=== PATIENT | female | born 1955 | race Caucasian/White ===

== ENCOUNTER 2019-01-10 06:13 | Day surgery (SDC) | payer OTHER ==
[~2019-01-10 06:13] MED LIST: Lactated Ringers 1,000 ML IV SCH; Lidocaine 1%/Sod Bicarbonate in NS 8.4% 1 ML Syringe IDERM PRN; Sodium Chloride 0.9% 10 ML Syringe FLUSH PRN
--- NOTE | 2019-01-10 06:47 | PCM.PREANE ---
Preanesthetic Assessment - Anesthesia/Transfusion/Family Hx Anesthesia History: Prior Anesthesia Without Reaction Family History of Anesthesia Reaction: No Transfusion History: No Prior Transfusion(s) - Review of Systems General: No Symptoms Pulmonary: No Symptoms Cardiovascular: No Symptoms Gastrointestinal: No Symptoms Neurological: No Symptoms Other: Reports: None - Physical Assessment NPO Status Date: 01/09/19 NPO Status Time: 00:00 Pulse: 85 O2 Sat by Pulse Oximetry: 98 Respiratory Rate: 16 Blood Pressure: 128/79 Temperature: 36.2 C Height: 1.7 m Weight: 69.354 kg ASA Class: 2 Mental Status: Alert & Oriented x3 Airway Class: Mallampati = 1 Dentition: Reports: Caries (fillings) Thyro-Mental Finger Breadths: 3 Mouth Opening Finger Breadths: 3 ROM/Head Extension: Full Lungs: Clear to Auscultation, Normal Respiratory Effort Cardiovascular: Regular Rate, Regular Rhythm - Allergies Allergies/Adverse Reactions: Allergies Allergy/AdvReac Type Severity Reaction Status Date / Time Sulfa (Sulfonamide Allergy Headache Verified 01/09/19 14:43 Antibiotics) - Blood Blood Available: No Product(s) Available: None - Anesthesia Plan Pre-Op Medication Ordered: None - Acknowledgements Anesthesia Type Planned: General Anesthesia Pt an Appropriate Candidate for the Planned Anesthesia: Yes Alternatives and Risks of Anesthesia Discussed w Pt/Guardian: Yes Pt/Guardian Understands and Agrees with Anesthesia Plan: Yes PreAnesthesia Questionnaire HEENT History: Reports: Impaired Vision Cardiovascular History: Reports: High Cholesterol, Hypertension Respiratory History: Reports: None Gastrointestinal History: Reports: None Genitourinary History: Reports: Other (See Below) Other Genitourinary History: Stress urinary incontinence MANAGER SPA History: Reports: Musculoskeletal History: Reports: None Neurological History: Reports: Migraines Psychiatric History: Reports: Depression Endocrine/Metabolic History: Reports: None Hematologic History: Reports: None Immunologic History: Reports: None Oncologic (Cancer) History: Reports: Other (See Below) Other Oncologic History: Skin Dermatologic History: Reports: None - Past Surgical History Head Surgeries/Procedures: Reports: None HEENT Surgical History: Reports: None Cardiovascular Surgical History: Reports: None Respiratory Surgical History: Reports: None GI Surgical History: Reports: Appendectomy Female Surgical History: Reports: Hysterectomy, Other (See Below) Other Female Surgeries/Procedures: Bladder repair Endocrine Surgical History: Reports: None Neurological Surgical History: Reports: None Musculoskeletal Surgical History: Reports: None Dermatological Surgical History: Reports: None - SUBSTANCE USE Smoking Status *Q: Never Smoker Tobacco Use Within Last Twelve Months: No Second Hand Smoke Exposure: No Days Per Week of Alcohol Use: 1 Number of Drinks Per Day: 7 Total Drinks Per Week: 7 Recreational Drug Use History: No - HOME MEDS Home Medications: Home Meds Cholecalciferol (Vitamin D3) [Vitamin D3] 5,000 unit PO BEDTIME 01/09/19 [ History] Lisinopril/Hydrochlorothiazide [Lisinopril-HCTZ 10-12.5 MG] 1 tab PO BEDTIME 05/22 [History] SUMAtriptan Succinate [Imitrex] 100 mg PO ASDIRECTED PRN 01/09/19 [History] - CURRENT (IN HOUSE) MEDS Current Meds: Current Medications Lactated Ringer's (Ringers, Lactated) 1,000 mls @ 125 mls/hr IV ASDIRECTED MARY Stop: 01/10/19 23:00 Lidocaine/Sodium Bicarbonate (Buffered Lidocaine 1% In Ns 8.4%) 0.25 ml IDERM ONETIME PRN PRN Reason: Prior to IV Start Stop: 01/10/19 18:00 Sodium Chloride (Saline Flush) 10 ml FLUSH ASDIRECTED PRN PRN Reason: Keep Vein Open Stop: 01/10/19 18:00
[2019-01-10] MEDS ORDERED: Rocuronium 50 MG/5 ML Vial ONE (06:53)
[2019-01-10] MEDS ORDERED: Ondansetron 4 MG/2 ML SDV ONE (06:53)
[2019-01-10] MEDS ORDERED: Midazolam 1 MG/ML 2 ML SDV ONE (06:53)
[2019-01-10] MEDS ORDERED: Propofol 200 MG/20 ML SDV ONE (06:53)
[2019-01-10] MEDS ORDERED: ceFAZolin 1 GM Vial ONE (06:54)
[2019-01-10] MEDS ORDERED: Lidocaine 1% with EPINEPHrine 1:100,000 20 ML MDV ONE (06:54)
[2019-01-10] MEDS ORDERED: fentaNYL 250 MCG/5 ML SDV ONE (06:54)
[2019-01-10] MEDS ORDERED: Sodium Chloride 0.9% 50 ML SDV ONE (06:54)
[2019-01-10] MEDS ORDERED: Lidocaine 1% 4 ML ONE (06:57)
[2019-01-10] MEDS ORDERED: Dexamethasone 4 MG/ML SDV ONE (07:37)
[2019-01-10] MEDS ORDERED: Lactated Ringers 1,000 ML ONE (07:38)
[2019-01-10] MEDS ORDERED: ePHEDrine/Normal Saline 25 MG/5 ML Syringe ONE (07:43)
[2019-01-10] MEDS ORDERED: HYDROmorphone 0.5 MG/0.5 ML Syringe ONE ×2 (07:57)
[2019-01-10] MEDS ORDERED: Ketorolac 30 MG/ML SDV ONE (08:21)
[2019-01-10] MEDS ORDERED: fentaNYL 100 MCG/2 ML SDV IVPUSH PRN (08:50)
[2019-01-10] MEDS ORDERED: HYDROmorphone 0.5 MG/0.5 ML Syringe IVPUSH PRN (08:50)
--- NOTE | 2019-01-10 08:51 | PCM.POSTAN ---
POST ANESTHESIA ASSESSMENT - MENTAL STATUS Mental Status: Somnolent - VITAL SIGNS Pulse Rate: 94 SaO2: 95 Resp Rate: 9 Blood Pressure: 124/69 Temperature: 36.1 C - RESPIRATORY Respiratory Status: Respiratory Rate WNL, Airway Patent, O2 Saturation Stable - CARDIOVASCULAR CV Status: Pulse Rate WNL, Blood Pressure Stable - GASTROINTESTINAL GI Status: No Symptoms - PAIN Pain Score: 0 - POST OP HYDRATION Hydration Status: Adequate & Stable - OBSERVATIONS Free Text/Narrative:: no anesthesia complications noted
[2019-01-10] MEDS ORDERED: Acetaminophen/oxyCODONE 325-5 MG Tab PO PRN (09:01)
[2019-01-10] MEDS ORDERED: Ondansetron 4 MG/2 ML SDV IVPUSH PRN (09:01)
[2019-01-10] MEDS ORDERED: Ketorolac 30 MG/ML SDV IVPUSH SCH (09:15)
--- NOTE | 2019-01-10 11:06 | PCM.OPNOTE ---
- General Post-Op/Procedure Note Date of Surgery/Procedure: 01/10/19 Operative Procedure(s): Anterior and posterior vaginal repair, subfascial mid- urethral sling procedure Findings: Patient has a grade 2-3 cystocele, grade 2-3 rectocele. Uterus and cervix are surgically absent. Mild vaginal atrophy is noted. Pre Op Diagnosis: 1. Symptomatic cystocele. 2. Symptomatic rectocele. 3. Stress urinary incontinence de ana risk with repair of the cystocele. Post-Op Diagnosis: Same Anesthesia Technique: General ET Tube Other Anesthesia Type: Lidocaine quarter percent with epinephrineproximal 20 mL Primary Surgeon: Corbin Langston Secondary Surgeon: Samson Davison Anesthesia Provider: Antonio Guerrero Reason Grounds Caretaker Was Necessary: Retraction, assistance, patient safety, all of care Fluid Replacement, Intraop: 1,500 EBL in mLs: 15 Drain/Tube Comments:: Patient had red rubber catheter to drain the bladder initially and then refill bladder at the end of the procedure Complications: None Condition: Good Free Text/Narrative:: Intake & Output 01/09/19 01/10/19 01/10/19 22:59 06:59 14:59 Intake Total 200 Output Total 110 Balance 90 Surgery duration: 50 minutes Procedure: The patient was appropriately consented for the procedure proposed. She was then taken to the operating room and placed in a supine position on the operating table. She received 2 g of Ancef preoperatively for infection prophylaxis. She had sequential compression stockings in place for DVT prophylaxis. Patient was administered general endotracheal anesthesia. She was placed in a dorsal lithotomy position and prepped and draped in the usual fashion. Anterior vaginal repair was performed. Patient had emptied her bladder personnel worker to the OR. Weighted speculum was placed in the vagina and the uppermost portion of the cystocele was identified. Two Allis clamps was placed at that uppermost point at a position approximately 1-1/2 cm lateral to the midline A second Allis clamp was placed approximately 2 cm from the urethral meatus. The areas and infiltrated with lidocaine quarter percent with epinephrine. Approximately 8 mL was used. The 2 lateral Allis clamps were retracted and an epithelial incision was made between the 2 clamps. A midline incision was then made with a Metzenbaum scissors. The overlying epithelium was then dissected off of the underlying vesicovaginal fascia. This all to lateral which when approximately midline was felt to be adequate to reduce the cystocele. When this was done approximately 4 trapezoidal shaped sutures of 0 Monocryl were then placed reapproximating the lateral supportive tissue midline and reducing the cystocele. At this point the excess epithelium bilaterally was removed and the epithelium was closed in a running fashion with 2 short segments to decrease likelihood of shortening of the vagina. Her bladder was drained with a red rubber catheter. Normal urine was removed. The epithelium overlying the urethra was grasped approximately 1 cm from the urethral meatus and approximately 2 cm cephalad from there with Allis clamps. The area of the skin overlying the medial aspect of the obturator foramen on each side just posterior to the origin the abductor longus musclewas marked with a marking pen. These 2 areas and the sub-fascial layer of the vaginal were then infiltrated with lidocaine quarter percent with epinephrine total of approximately 10 mL was used. incisions made in the epithelium overlying the urethra and 2 small stab wounds 3 mm in length were made in the 2 areas of the panty line of the patient. The subfascial planes and adequately dissected bilaterally to allow placement of the mesh. The helical adapter was then placed through the obturator on patient's left side brought out through the vaginal subfascial plane. Mesh was attached to it and then was pulled back through the obturator foramen. Same was done on the right side. Mesh was then snugged up to the urethra. Dilator 15 mm in diameter was used as a spacer to place the mesh in a tension-free position. At this point the mesh was cut off at the skin surface and the dilator was removed. The midline epithelium was closed with a short running suture of 3-0 Monocryl. Rectocele was then performed. The uppermost portion of the rectocele was identified and was grasped midline with an Allis clamp. The introital area was grasped at approximately the 5:00 and 7:00 positions at the junction of the vaginal and vulvar epithelium. The area of epithelium was then infiltrated with lidocaine quarter percent with epinephrine. A jon-shaped piece of epithelium was removed from the posterior introital and perineal area. The vaginal epithelium was then undermined superiorly to the top of the rectocele. Was then incised midline. With sharp and blunt dissection the epithelium was then dissected off of the underlying vesicovaginal fascia. At this point approximately 5 sutures of 0 Monocryl were placed to reapproximate the lateral supportive tissue midline and reduce the rectocele. The excess epithelium was then excised and the epithelium overlying the rectocele repair was then reapproximated with a running suture of 3-0 Monocryl. Perineoplasty was then performed with approximately 4 V-shaped stitches of 0 Monocryl in placed to reapproximate the lateral tissue midline, rebuild the perineum about 1 cm and the vagina approximately 1 cm. The epithelium of the introitus and perineal body was then reapproximated using 3-0 Monocryl in an episiotomy repair fashion. At this time sponge, instrument and needle counts were correct. Skin incisions used for placement of the subfascial, mid-urethral mesh were closed with Dermabond skin glue. The patient is bladder was filled with approximately 240 cc of normal saline to facilitate voiding and therefore discharge home. The patient was returned to supine position, awakened from general endotracheal anesthesia and was discharged from operating room in good condition
--- NOTE | 2019-01-10 14:10 | PCM48HPAN ---
Post Anesthesia Note - EVALUATION WITHIN 48HRS OF ANESTHETIC Vital Signs in Normal Range: Yes Patient Participated in Evaluation: Yes Respiratory Function Stable: Yes Airway Patent: Yes Cardiovascular Function Stable: Yes Hydration Status Stable: Yes Pain Control Satisfactory: Yes Nausea and Vomiting Control Satisfactory: Yes Mental Status Recovered: Yes Pulse Rate: 94 Resp Rate: 16 Temperature: 36.1 C Blood Pressure: 124/69 - COMMENTS/OBSERVATIONS Free Text/Narrative:: no anesthesia complications noted
== END 2019-01-10 12:30 | disposition home or self-care (01) ==
LOC: JD.SDS 06:13
PROVIDERS: ATTEND Obstetrics & Gynecology
DX: N81.6 Rectocele (principal); N81.10 Cystocele, unspecified; N39.3 Stress incontinence (female) (male); N95.2 Postmenopausal atrophic vaginitis; I10 Essential (primary) hypertension; E78.00 Pure hypercholesterolemia, unspecified; G43.909 Migraine, unspecified, not intractable, without status migrainosus; M19.90 Unspecified osteoarthritis, unspecified site; Z88.2 Allergy status to sulfonamides; Z90.710 Acquired absence of both cervix and uterus; Z79.899 Other long term (current) drug therapy
CPT/HCPCS: 00942; 93005; A9270-GY; C1771; J0690; J1100; J1170; J1885; J2001; J2250; J2405; J2704; J3010; J7050; J7120